=== PATIENT | male | born 1975 ===

== ENCOUNTER 2024-08-09 12:46 | Emergency (ER) | payer OTHER, SELFPAY ==
[2024-08-09] VITALS (10 sets, daily range): BP systolic 112–145; BP diastolic 58–81; PULSE 57–77; RESP 7–18; TEMP 36.4; O2SAT 94–99; BMI 31.4
--- NOTE | 2024-08-09 12:09 | EKG_ITS ---
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
--- NOTE | 2024-08-09 12:19 | DI.RAD.S_ITS ---
PROCEDURE: XR CHEST 1V INDICATIONS: Chest Pain TECHNIQUE: One view of the chest was acquired. COMPARISON: None. FINDINGS: Surgical changes and devices: None. Lungs and pleura: Lungs are clear. No pleural effusions or pneumothorax. Mediastinum: Mediastinal contours appear normal. Heart size is normal. Bones and chest wall: No suspicious bony lesions. Overlying soft tissues appear unremarkable. IMPRESSION: No acute cardiopulmonary abnormality is seen. Approved by: Darius Cardoso M.D. on 08/09/2024 at 11:59
[2024-08-09] MEDS: SODIUM CHLORIDE 0.9% 1,000 ML 1000 ML IV (12:27)
[2024-08-09 12:52] LABS: Add Manual Diff / Slide Review NO; Basophils Absolute Auto 0 /uL (0-100); Basophils Percent Auto 0.3 % (0-2); Eosinophils Absolute Auto 100 /uL (0-450); Eosinophils Percent Auto 1.4 % (2-4); Hematocrit 38.2 % (41-53); Hemoglobin 12.9 g/dL (13.5-17.5); Lymphocytes Absolute Auto 1100 /uL (1100-4500); Lymphocytes Percent Auto 16.2 % (25-40); Mean Corpuscular HGB Conc 33.9 % (30-36); Mean Corpuscular Hemoglobin 29.2 PG (26-34); Mean Corpuscular Volume 86.3 fL (80-100); Monocytes Absolute Auto 500 /uL (0-900); Monocytes Percent Auto 6.8 % (3-14); Neutrophils Absolute Auto 5200 /uL (1500-7000); Neutrophils Percent Auto 75.3 % (50-75); Platelet Count 187 X10^3/uL (150-400); Red Blood Cell Count 4.42 X10^6/uL (4.5-5.9); Red Cell Distribution Width 13.2 % (11.6-14.8); White Blood Cell Count 6.9 X10^3/uL (4.5-11.0)
[2024-08-09 13:00] LABS: Prothrombin Time 11.8 SECONDS (9.4-12.5)
[2024-08-09 13:02] LABS: PTT Partial Thromboplastin Tim 34 SECONDS (25.1-36.5)
[2024-08-09 13:06] LABS: Alanine Aminotransferase 169 IU/L (<50); Albumin 4.3 g/dL (3.5-5.0); Albumin Globulin Ratio 1.7 (1.0-2.8); Alkaline Phosphatase 62 U/L (38-126); Aspartate Aminotransferase 95 IU/L (17-59); BUN Creatinine Ratio 18.1 (6-22); Bilirubin Total 0.6 mg/dL (0.2-1.3); Blood Urea Nitrogen 17 mg/dL (9-20); Calcium 8.7 mg/dL (8.4-10.2); Carbon Dioxide 22 mmol/L (22-32); Chloride 106 mmol/L (98-107); Creatine Kinase 339 U/L (55-170); Estimated Glomerular Filt Rate > 60 mL/min (>60); Globulin 2.6 g/dL (1.7-4.1); Glucose 168 mg/dL (70-99); HEMOLYSIS < 15 (0-50); Lipase 123 U/L (23-300); Magnesium 1.9 mg/dL (1.6-2.3); Potassium 4.1 mmol/L (3.4-5.1); Sodium 138 mmol/L (137-145); Total Protein 6.9 g/dL (6.3-8.2)
[2024-08-09 13:17] LABS: NT-proBNP (BNP-Adult 18+) < 20 pg/mL (<125); Troponin I < 0.012 ng/mL (0.01-0.034)
--- NOTE | 2024-08-09 14:07 | ED.SYNCOPE ---
HPI - Syncope General Chief Complaint: Syncope Stated Complaint: Syncope Time Seen by Provider: 08/09/24 13:51 Source: patient, EMS, RN notes reviewed and old records reviewed Mode of arrival: EMS Limitations: no limitations History of Present Illness HPI narrative: 49-year-old male history of hypertension recently restarted medication 2 days ago. Patient states that he went to go [place] today visiting in the area with a his son. Patient states he often gets back discomfort when he moves side to side or bends and felt discomfort from his back radiating towards the front. He got very lightheaded and had what sounds like a syncopal episode for a brief period. Described as less than 1 minute. No fevers or chills. Patient denies any chest pain or pressure. Denies any shortness of breath. States pain was very similar to other episodes he had which are very related to movement and lifting. Did have some nausea and vomited once. No diarrhea, no constipation. No dysuria urgency or frequency. No incontinence. Patient does not have any active pain currently. Denies any swelling or changes to his extremities. Notes he restarted his blood pressure medication which he was losartan 2 days ago because he was having severe headache. He was seen in emergency department had CT imaging of his head and his old medication was re-initiated. He notes he had a very similar episode the 1st time he was started losartan we had a syncopal episode as well. States no other daily medications. Notes a remote history of orthopedic surgery for leg. No allergies to medications. Denies any daily tobacco, does drink 1 or 2 alcoholic drinks several days a week, denies any recreational or IV drugs. Does note driving to [place] from [place] and flight to the [place] in the last 6 months. Patient lives in [place]. Does have a primary care physician. Denies any cardiac, embolic or vascular history in his family or for himself. Related Data Allergies Allergy/AdvReac Type Severity Reaction Status Date / Time No Known Drug Allergies Allergy Verified 08/09/24 12:13 Review of Systems Review of Systems ROS Unobtainable: All systems reviewed & are unremarkable except as noted in HPI and below Exam Narrative Exam Narrative: GENERAL: Alert and oriented x three, male in mild distress HEENT: Head normocephalic, atraumatic, EOMI, pupils reactive, face symmetric, moist mucous membranes NECK: Supple, full range of motion CARDIOVASCULAR: Regular rate and rhythm without murmurs, rubs or gallops. RESPIRATORY: Breath sounds equal bilaterally, no wheezes rales or rhonchi. ABDOMEN: Soft, nontender. Normoactive bowel sounds all 4 quadrants. No guarding or rebound, rigidity, no mass, no pulsatile mass or bruit. : No CVA tenderness EXTREMITIES: Normal range of motion, no clubbing or edema. Neurovascularly intact. 2+ pulses bilateral lower extremity. No pallor, cyanosis or other skin changes. NEUROLOGICAL: Cranial nerves II through XII grossly intact. Moving all extremities SKIN: Warm, dry, no petechiae, no rashes or lesions. Initial Vital Signs Initial Vital Signs: Vital Signs Temperature 97.6 F 08/09/24 12:06 Pulse Rate 57 L 08/09/24 12:06 Respiratory Rate 12 08/09/24 12:06 Blood Pressure 145/71 H 08/09/24 12:06 Pulse Oximetry 94 08/09/24 12:06 Oxygen Delivery Method Room Air 08/09/24 12:06 Course Orders Ordered: ED Orders 08/09/24 12:19 XR chest 1V Stat EKG-12 Lead Stat 08/09/24 12:41 Complete Blood Count AUTO DIFF Stat Comprehensive Metabolic Panel Stat D Dimer Stat Lipase Stat Magnesium Stat NT-proBNP (BNP-Adult 18+) Stat PTT Partial Thromboplastin Dominik Stat Prothrombin Time INR Stat Troponin & CK Cardiac Panel Stat 08/09/24 14:05 Urine Microscopic Stat Discontinued Medications Aspirin (Aspirin 81 Mg Chew Tab) 324 mg PO NOW ONE Stop: 08/09/24 12:20 Sodium Chloride (Normal Saline 0.9%) 1,000 mls @ 1,000 mls/hr IV BOLUS ONE Stop: 08/09/24 13:25 Last Infusion: 08/09/24 13:28 Dose: Infused Documented By: Admin: 08/09/24 12:27 Dose: 1,000 mls/hr Documented By: MARTINA Ondansetron HCl (Ondansetron 4 Mg/2 Ml Inj) 4 mg IV NOW PRN PRN Reason: Nausea And Vomiting Vital Signs Vital signs: Vital Signs - 8 hr 08/09/24 12:06 08/09/24 12:13 08/09/24 12:18 Temperature 97.6 F Pulse Rate 57 L 57 L 63 Respiratory Rate 12 10 L 7 L Blood Pressure 145/71 H Pulse Oximetry 94 97 97 Oxygen Delivery Method Room Air 08/09/24 12:18 08/09/24 12:30 08/09/24 12:30 Temperature Pulse Rate 64 Respiratory Rate 14 Blood Pressure 114/58 L 126/61 Pulse Oximetry 97 Oxygen Delivery Method 08/09/24 13:00 08/09/24 13:00 08/09/24 13:30 Temperature Pulse Rate 69 77 Respiratory Rate 12 16 Blood Pressure 112/62 Pulse Oximetry 99 99 Oxygen Delivery Method 08/09/24 13:30 08/09/24 14:00 08/09/24 14:01 Temperature Pulse Rate 76 Respiratory Rate 14 Blood Pressure 119/72 138/74 Pulse Oximetry 99 Oxygen Delivery Method 08/09/24 14:01 08/09/24 14:30 08/09/24 14:30 Temperature Pulse Rate 73 70 Respiratory Rate 18 18 Blood Pressure 140/81 Pulse Oximetry 99 99 Oxygen Delivery Method 08/09/24 15:00 08/09/24 15:00 Temperature Pulse Rate 72 Respiratory Rate 15 Blood Pressure 144/75 H Pulse Oximetry 98 Oxygen Delivery Method MDM - Syncope Lab Data 08/09/24 12:41 08/09/24 12:41 Labs: Lab Results 08/09/24 08/09/24 Range/Units 12:41 14:05 WBC 6.9 (4.5-11.0) X10^3/uL RBC 4.42 L (4.5-5.9) X10^6/uL Hgb 12.9 L (13.5-17.5) g/dL Hct 38.2 L (41-53) % MCV 86.3 (80-100) fL MCH 29.2 (26-34) PG MCHC 33.9 (30-36) % RDW 13.2 (11.6-14.8) % Plt Count 187 (150-400) X10^3/uL Neut % (Auto) 75.3 H (50-75) % Lymph % (Auto) 16.2 L (25-40) % [place] % (Auto) 6.8 (3-14) % Eos % (Auto) 1.4 L (2-4) % Baso % (Auto) 0.3 (0-2) % Neut # (Auto) 5200 (6889-4599) /uL Lymph # (Auto) 1100 (0685-4535) /uL [place] # (Auto) 500 (0-900) /uL Eos # (Auto) 100 (0-450) /uL Baso # (Auto) 0 (0-100) /uL PT 11.8 (9.4-12.5) SECONDS INR 1.0 (0.9-1.3) APTT 34 (25.1-36.5) SECONDS D-Dimer 468 (<500) ng/ml Sodium 138 (137-145) mmol/L Potassium 4.1 (3.4-5.1) mmol/L Chloride 106 (98-107) mmol/L Carbon Dioxide 22 (22-32) mmol/L BUN 17 (9-20) mg/dL Creatinine 0.94 (0.66-1.25) mg/dL Estimated GFR > 60 (>60) mL/min BUN/Creatinine Ratio 18.1 (6-22) Glucose 168 H (70-99) mg/dL Calcium 8.7 (8.4-10.2) mg/dL Magnesium 1.9 (1.6-2.3) mg/dL Total Bilirubin 0.6 (0.2-1.3) mg/dL AST 95 H (17-59) IU/L ALT 169 H (<50) IU/L Alkaline Phosphatase 62 (38-126) U/L Total Creatine Kinase 339 H (55-170) U/L Troponin I < 0.012 (0.01-0.034) ng/mL NT-Pro-B Natriuret Pep < 20 (<125) pg/mL Total Protein 6.9 (6.3-8.2) g/dL Albumin 4.3 (3.5-5.0) g/dL Globulin 2.6 (1.7-4.1) g/dL Albumin/Globulin Ratio 1.7 (1.0-2.8) Lipase 123 (23-300) U/L Urine RBC None seen (0-5/HPF) Urine WBC None seen (0-5/HPF) Ur Squamous Epith Cells None seen (0-5/HPF) Urine Bacteria Occasional (0-1) (None) Urine Mucus 2+ H (Negative) Urine Yeast 0-1/hpf (None) Ur Culture Indicated? Cult not indicated Vol Urine Centrifuged 10ml (spun) Urine Dip Bedside Urine Glucose Negative Bedside Urine Bilirubin - Negative Bedside Urine Ketone - Negative Urine Specific [place] 1.030 Bedside Urine Occult Blood - Negative Bedside Urine pH 5.5 Bedside Urine Protein +/- 15 Bedside Urine Urobilinogen - Negative Bedside Urine Nitrite - Negative Bedside Urine Leukocytes - Negative Esterase ECG Data Attestation: I personally reviewed and interpreted this ECG as follows: Prior ECG tracings: not available for review Interpretation: Sinus bradycardia rate of 58 KS 146 QRS 88 QTC of 410, nonspecific T-wave change, T-wave inverted in 1 and aVL. No prior for comparison. MDM Narrative Medical decision making narrative: EKG shows sinus bradycardia, nonspecific ST change no priors for comparison, T-wave inverted in 1 and aVL. Week every 6.9 hemoglobin of 12.9 platelets are 187. PTT and INR normal, electrolytes are appropriate BUN and creatinine are normal glucose is 168, AST is 95 ALT is 169 bilirubin is 0.6 alk-phos is 62 lipase is 123. Total CK is 339. Troponins less than 0.012 with a BNP of less than 20. Dimer is negative at 468. Patient received 1L normal saline. Patient states he was currently asymptomatic. Notes he had a similar episode last time he was started losartan blood pressures had improved and he was stopped it about a year ago recently having headaches since seen in the ER was hypertensive so was restarted. Cardiac echo study show any acute change no prior EKGs for comparison. Patient did have risk factor of long-distance travel was in the last 3-6 months. No hypoxia, no tachycardia, no hypotension. Ambulation trial with no difficulties. Discharge Plan Departure Patient Disposition: Home Clinical Impression: Syncope Instructions: DI for Syncope in Adults (Fainting) Activity Restrictions/Additional Instructions: Follow up with your physician if you have any recurrent episodes of lightheadedness or passing out you do need to stop your blood pressure medication. I would recommend checking or monitoring your blood pressure at home if you have a cuff available. Please return or go to the closest ER for recurrent symptoms, severe headaches, new chest pain or shortness of breath, lightheadedness or passing out, swelling you have your extremities, flank or bloody stools or other new or concerning changes. Stand Alone Forms: Patient Portal/API
[2024-08-09 14:27] LABS: Urine Volume 10mL (spun)
[2024-08-09 14:33] LABS: Bacteria Urine Occasional (0-1); Culture Indicated Urine Cult Not Indicated; Mucus Urine 2+ (Negative); RBC Urine None Seen (0-5/HPF); Squamous Epithelial Cell Urine None Seen (0-5/HPF); WBC Urine None Seen (0-5/HPF)
[2024-08-09 15:02] LABS: D Dimer 468 ng/ml (<500)
== END 2024-08-09 15:58 | disposition home or self-care (01) ==
PROVIDERS: Emergency Provider Emergency Medicine
DX: R55 Syncope and collapse (principal); R51.9 Headache, unspecified
CPT/HCPCS: 36415; 71045; 80053; 81003; 81015; 82550; 83690; 83735; 83880; 84484; 85025; 85379; 85610; 85730; 93005; 96360; 99284